=== PATIENT | male | born 1990 | race Two or more races ===

== ENCOUNTER 2018-03-06 18:18 | Emergency (ER) | payer SELFPAY ==
[2018-03-06] MEDS ORDERED: LIDOCAINE WITH 8.4% SOD BICARB 3 ML DISP.SYRIN. INJ (18:45)
[2018-03-06] MEDS: LIDOCAINE WITH 8.4% SOD BICARB 3 ML DISP.SYRIN. INJ (18:45)
[2018-03-06] MEDS: HYDROcodone/APAP 5/325MG 1 TAB TABLET PO (19:22)
== END 2018-03-06 19:25 | disposition home or self-care (01) ==
LOC: ER 18:18
DX: L02.414 Cutaneous abscess of left upper limb (principal); L03.114 Cellulitis of left upper limb; Z79.899 Other long term (current) drug therapy; Z79.891 Long term (current) use of opiate analgesic
CPT/HCPCS: 10060; 99283